=== PATIENT | male | born 1980 | race Hispanic/Latino ===

== ENCOUNTER 2021-03-30 09:28 | Inpatient (IN) | payer OTHER ==
[~2021-03-30] VITALS: Ht 182.9 cm; Wt 71.7 kg
--- NOTE | 2021-03-30 13:57 | NUR ---
ARRIVED TO CCU VIA STRETCHER AND WAS BROUGHT DOWN BY AN RN AND SECURITY. PT RESTLESS IN THE BED AND ALTERED BUT NOT RESPONDING TO QUESTIONS. PT AGITATED AT TIMES BUT REASSURABLE WITH TOUCH/TALK. PT HAS IV INSULIN INFUSING AT THIS TIME AT 8.8 UNITS/HR. VITALS TAKEN, PT ASSESSED. BLOOD SUGAR CHECKED AT 1300 AND WAS 562. PT INSULIN DRIP KEPT AT 8.8 UNITS/HR PER PROTOCOL. PRN ATIVAN 2MG ADMINISTERED AT THIS TIME AND ORDERED LR INFUSING AT THIS TIME. PT'S EX IN TO SEE PT INITIALLY. PT'S BROTHER NOW IN ROOM AT BEDSIDE, PT LAYING IN BED AND NO LONGER RESTLESS. WILL CONTINUE PLAN OF CARE. IVF INFUSING IV INSULIN TITRATING. PT'S BROTHER IN ROOM, SECURITY PRESENT.
--- NOTE | 2021-03-30 14:10 | NUR ---
PT LAYING IN BED AT THIS TIME STILL DROWSY/ALTERED. 100% SPO2 ON ROOM AIR. BLOOD GLUCOSE TAKEN AND WAS 358. PT INSULIN DRIP TITRATED DOWN TO 6 UNITS/HR PER PROTOCOL. PT NOT RESTLESS AND OCCASIONALY TURNING IN BED. PT BROTHER AT BEDSIDE, SECURITY OUTSIDE ROOM. IVF INFUSING, IV INSULIN TITRATING, WILL CONTINUE PLAN OF CARE.
--- NOTE | 2021-03-30 14:18 | NUR ---
ATTEMPTED TO MAKE CONTACT WITH PATIENT TO COMPLETE CASE MANAGEMENT ASSESSMENT. RAJAT MURCIA AND CHINMAY TAYLOR AT BEDSIDE ATTEMPTING TO CALM PATIENT. UNABLE TO COMPLETE ASSESSMENT DUE TO PATIENTS MEDICAL CONDITION AND BEHAVIOR AT THIS TIME, WILL FOLLOW UP WITH PATIENT TOMORROW.
--- NOTE | 2021-03-30 15:17 | NUR ---
THIS RN IN TO CHECK ON PT. PT LAYING IN BED RESTING/DROWSY, BROTHER AT BEDSIDE. INSULIN DRIP NOW AT 0.9 UNITS/HR AND PT ON D5 1/2NS ORDERED DUE TO A BLOOD SUGAR OF 143. MEDICATION WAS STARTED BY FOOD AND BEVERAGE MANAGER LUIS MIGUEL. PT IN NO APPARENT DISTRESS AT THIS TIME AND IS LAYING IN BED, WILL CONTINUE PLAN OF CARE.
--- NOTE | 2021-03-30 16:30 | NUR ---
THIS RN IN TO TAKE PT'S BLOOD SUGAR AND TITRATE INSULIN DRIP. PT LAYING IN BED SLEEPING/DROWSY AT THIS TIME. BLOOD SUGAR WAS 191. DR. QUEZADA CALLED AND UPDATED ON PT. ORDERS GIVEN TO CONTINUE INSULIN DRIP FOR ANOTHER HOUR AND THEN UPDATE HER. INSULIN DRIP TITRATED UP TO 2.8 UNITS/HR PER PROTOCOL. PT IN NO APPARENT DISTRESS AT THIS TIME, WILL CONTINUE PLAN OF CARE. BED IN LOWEST POSITION, BROTHER AT BEDSIDE, IV INSULIN TITRATING AT NEW RATE, D5 1/2 NS INFUSING, SECURITY OUTSIDE ROOM.
--- NOTE | 2021-03-30 17:20 | NUR ---
THIS RN IN TO CHECK PT'S BLOOD SUGAR. PT LAYING IN BED RESTING, BLOOD GLUCOSE ASSESSED AT THIS TIME AND WAS 219. DR. QUEZADA UPDATED ON PATIENT AND NEW BLOOD GLUCOSE. DR. QUEZADA STATED SHE WOULD BE PUTTING IN NEW ORDERS FOR THE PT AT THIS TIME. WILL AWAIT ORDERS AND CONTINUE PLAN OF CARE. PT LAYING IN BED RESTING, D5 1/2 NS AND IV INSULIN INFUSING AT PREVIOUS RATES, BED IN LOWEST POSITION, BROTHER AT BEDSIDE.
--- NOTE | 2021-03-30 17:50 | NUR ---
THIS RN IN TO CHECK ON PT. FATHER IN ROOM WITH PT. PT LAYING IN BED ON ROOM AIR RESTING. D5 1/2NS AND IV INSULIN DRIP STOPPED AT THIS TIME. IV SITES FLUSHED AND PT PLACED ON ORDERED IVR LR AT 125. PT NO LONGER RESTLESS AND FOLLOWING COMMANDS BUT STILL DROWSY AND KEEPING EYES CLOSED. PT ABLE TO ANSWER FULL NAME, TOWN, AND LOCATION WHEN ASKED BUT DROWSY WHILE ANSWERING AND RETURNED BACK TO SLEEP/REST SHORTLY AFTER. PT'S EX NOW IN ROOM AT BEDSIDE. PT RESTING IN BED IVF INFUSING, PT IN NO APPARENT DISTRESS. BED IN LOWEST POSITION, WILL CONTINUE PLAN OF CARE.
--- NOTE | 2021-03-30 18:40 | NUR ---
THIS RN IN TO CHECK ON PT. PT LAYING IN BED IN NO APPARENT DISTRESS AND RESTING. PT STILL DROWSY AT THIS TIME. IVF INFUSING ORDERED. SISTER AT BEDSIDE AT THIS TIME WITH PT. WILL CONTINUE PLAN OF CARE.
--- NOTE | 2021-03-30 19:40 | NUR ---
REPORT RECEIVED FROM RAJAT RN. IN TO CHECK ON PT. PTS DAUGHTER IS IN THE ROOM WITH PT. HE IS MOSTLY SLEEPY BUT IS AROUSABLE TO VOICE. WHEN ASKED IF HE NEEDS ANYTHING HE REQUESTS A BLANKET, WARM BLANKET GIVEN. IVF INFUSING. RESTING HR 100.
--- NOTE | 2021-03-30 21:45 | NUR ---
PT HAS BEEN GETTING MORE AND MORE RESTLESS, TURNING OVER AND OVER IN THE BED, WRAPPING IV LINE AND MONITOR AROUND HIM. HR INCREASING UP TO 120'S. 2MG IV ATIVAN GIVEN.
--- NOTE | 2021-03-30 22:30 | NUR ---
PT LESS RESTLESS AFTER GETTING ATIVAN.
--- NOTE | 2021-03-31 00:24 | NUR ---
IN TO DO VS AND ASSESSMENT. PT STILL VERY SLEEPY. HR 105-115. DENIES PAIN.
--- NOTE | 2021-03-31 02:00 | NUR ---
PT CONTINUES TO TOSS AND TURN IN BED, HAS TWISTED AND PULLED OUT ONE OF HIS IV'S VERY DIFFICULT TO KEEP MONITOR CORDS ON HIM.
--- NOTE | 2021-03-31 04:30 | NUR ---
IN TO ASSIST PT TO VOID, USED URINAL THEN BACK TO SLEEP.
--- NOTE | 2021-03-31 05:30 | NUR ---
PT PULLED OUT HIS SECOND IV WITH TWISTING HIMSELF IN BED. STATES HE HAS CHRNOIC BACK PAIN THAT MAKES HIM TURN FREQUENTLY IN BED. NEW IV STARTED WITH LAB DRAW.
--- NOTE | 2021-03-31 08:13 | NUR ---
PATIENT RESTING IN BED AND CONTINUES TO TOSS AND TURN SOME. PT USES CALL LIGHT AND STATES, "I;M HUNGRY." PT'S DAUGHTER REMAINS IN ROOM. PT HAS REMOVED HIS IV SITE AGAIN. CBG CHECKED AND FOUND TO BE 276 AND COVERED WITH SS INSULIN. PT THEN MOVING IN BED AND STATES, 'I NEED SOME FENTANYL."
--- NOTE | 2021-03-31 08:32 | NUR ---
PATIENT RESTING IN BED AT THIS TIME. DAUGHTER PRESENT IN ROOM. CALL LIGHT WITHIN REACH NO FUTHER NEEDS AT THIS TIME.
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
--- NOTE | 2021-03-31 11:12 | NUR ---
PATIENT CONTINUES TO HAVE EMESIS OFF THE SDIE OF THE BED AT THIS TIME. PT IS HALLUCINATING AND MORE DELIRIOUS THAN EARLIER. HR 110-120s, SP02 IS 100% ON ROOM AIR. PT REMAINS LAYING WITH HEAD AT END OF BED.
--- NOTE | 2021-03-31 11:29 | NUR ---
PATIENT GIVEN PRN BENADRYL. PT TOLERATED THIS WELL BUT IS NOT ORIENTED TO EVENT, NOTED TO BE HALLUCINATING SOME, AND CONTINUES TO BE RESTLESS. PT HAS NOW HAD 2 BOUTS OF EMESIS WITH >600 ML GREEN BILE LIKE EMESIS. NURSIGN PERSONNEL STAYING AT BEDSIDE FOR PATIENT SAFETY DUE TO INCREASED RISK FOR ASPIRATION WITH HIS RECENT VOMITING, HIS ALTERATION IN MENTAL STATUS AND HIS WITHDRAWAL SSYMPTOMS. PRN HALDOL AND ATIVAN AVAILABLE. 2 DOSES OF PRN ATIVAN GIVEN THUS FAR THIS AM. PT'S SISTER HAS SINCE LEFT ROOM AND STATES ANOTHER FAMILY MEMBER WILL BE RETURNING THIS AFTERNOON. PT VOIDS TO URINAL 400 ML. PT HELPED TO GET HIS UNDERWEAR ON PER HIS REQUEST. PT REMAINS OFF INSTALLATION HELPER DUE TO HIS CONSTANT TURNING OVER IN BED. IVF ALSO NOT CONNECTED WHILE HE IS SO MOBILE IN BED.
--- NOTE | 2021-03-31 11:41 | NUR ---
DIVINA RENAE REQUESTED I NOT VISIT PT AT THIS TIME. WILL FOLLOW NEEDED
--- NOTE | 2021-03-31 11:44 | NUR ---
PATIENT GIVEN IV HALDOL FOR AGITATION AND HALLUCINATIONS. PT PULLING HIS CORDS APART, RIPPING THE EMESIS BAGS APART, ATTEMPTING TO BRING THINGS UP TO HIS MOUTH TO SIMULATE SMOKING THEM. PT NOT COHERENT, BUT STILL SOMEWHAT COMPLIANT. NURSING PERSONNEL STAYING AT BEDSIDE CLOSE TO PATIENT.
--- NOTE | 2021-03-31 12:05 | NUR ---
THIS ENGINEER GAS PUMPING STATION 1:1 WITH THIS PATIENT UNTIL FURTHER NOTICE. MODIFIED REPORT GIVEN
--- NOTE | 2021-03-31 12:35 | NUR ---
VERY RESTLESS, DIFFICULT TO DIRECT. ATIVAN 2 MG IV GIVEN.
--- NOTE | 2021-03-31 12:36 | NUR ---
CALLED [facility] FOR DR. QUEZADA TO SEE IF PATIENT WAS ON A WAITLIST FOR DETOX. THEY HAD NO INFORMATION ON HIM. I TALKED TO LA AND HE EMAILED ME THE INFORMATION FOR JR TO HAVE AFTER HE GOES THROUGH DETOX. THERE ARE TWO PROGRAMS THAT ARE AVAILABLE. [facility] AND [facility], HE RECOMMENDED [facility] BECAUSE ITS FASTER TO GET INTO. HE SENT ME AN EMAIL WITH THE APPLICATION TO THEIR PROGRAM. I WILL BRING IT TO THE PATIENT.
--- NOTE | 2021-03-31 12:40 | NUR ---
MONA GALLAGHER HERE TO SIT ONE-ON-ONE WITH PATIENT PATIENT REMAINS VERY IMPULSIVE.
--- NOTE | 2021-03-31 12:41 | NUR ---
VERY IMPULSIVE. ATTEMPTING TO GET OOB.
--- NOTE | 2021-03-31 15:34 | NUR ---
BENADRYL 50 MG IV GIVEN PATIENT AGITATED.
--- NOTE | 2021-03-31 17:54 | NUR ---
PATIENT IS CALM AT THIS TIME. EXWIFE IN ROOM. IVF INFUSING AT 75 ML/HR.
--- NOTE | 2021-03-31 18:28 | NUR ---
PATIENT HAS RECIEVED A TOTAL OF ATIVAN 10 MG IV TODAY. HALDOL 2 MG TOTAL.
--- NOTE | 2021-03-31 19:00 | NUR ---
REMAINS CALM. SITTER IN ROOM. REPORT TO NEXT SHIFT.
--- NOTE | 2021-03-31 19:39 | NUR ---
RECEIVED REPORT FROM [facility]. pt RESTING ON LEFT SIDE, EYES CLOSED, RESPIRATIONS REGULAR AND UNLABORED. JODY 1:1 OBSERVATION WITH pt. WHITEBOARD UPDATED.
--- NOTE | 2021-03-31 21:45 | NUR ---
IN TO GIVE MEDICATIONS (SEE MAR). pt WOKE TO ANSWER QUESTIONS THEN CONTINUED SNORING. WAS ABLE TO TAKE ORAL MEDICATION. pt NODDED YES WHEN ASKED IF HE WANTS VISITORS. FATHER AT BEDSIDE. SECURITY JODY 1:1 OBS.
--- NOTE | 2021-03-31 22:27 | NUR ---
IN TO DO ASSESSMENT. pt RESTING IN BED WITH EYES CLOSED, RESPIRATIONS REGULAR AND UNLABORED. pt DID NOT RESPOND TO QUESTIONS. LIMITED ASSESSMENT DONE AT THIS TIME. LUNGS CLEAR. HR 100. IV PATENT. BROTHER AT BEDSIDE. KAREN 1:1 OBS.
--- NOTE | 2021-04-01 | NUR ---
pt RESTING IN BED WITH EYES CLOSED, RESPIRATIONS REGULAR, SNORING AT TIMES. SECURITY 1:1 WITH pt. pt's BROTHER SLEEPING ON COUCH.
--- NOTE | 2021-04-01 02:39 | NUR ---
IN TO DO BLOOD SUGAR AND ASSESSMENT. pt SNORING. DID NOT FLINCH WHEN BLOOD DRAWN FOR CBG OR WHEN INSULIN INJECTION GIVEN (SEE MAR). DID NOT WAKE FOR ASSESSMENT.
--- NOTE | 2021-04-01 04:30 | NUR ---
pt RESTING IN BED WITH EYES CLOSED, WOKE TO REPEATED VOICE. pt OPENED EYES AND STATED "NO" WHEN ASKED IF HE COULD PEE. DID, WITH MUCH COACHING, GET TO THE SIDE OF THE BED AN ATTEMPT. NO URINE. BLADDER SCAN DONE. pt SNORED THROUGH BLADDER SCAN. SECURITY 1:1 WITH pt.
--- NOTE | 2021-04-01 04:48 | NUR ---
UPDATED MD THAT pt HAS NOT VOIDED AND BLADDER SCAN INDICATED >290. ORDERED TO STRAIGHT CATH AND INCREASE FLUIDS TO 100ML/HR.
--- NOTE | 2021-04-01 05:09 | NUR ---
STRAIGHT CATH PER ORDERS. pt TOLERATED WELL. 250MLS OUT OF CONCENTRATED URINE WITH A STRONG ODOR. pt OPENED EYES OCCASSIONALLY. RESTING IN BED WITH EYES CLOSED, RESPIRATIONS REGULAR AND UNLABORED. SECURITY 1:1.
--- NOTE | 2021-04-01 07:06 | NUR ---
pt LAYING IN BED. EYES CLOSED, RESPIRATIONS REGULAR AND UNLABORED. SECURITY 1:1 OBS
--- NOTE | 2021-04-01 07:30 | NUR ---
REPORT RECIEVED. PATIENT IS RESTFUL IN BED AT THIS TIME. BROTHER IS IN ROOM.
--- NOTE | 2021-04-01 08:30 | NUR ---
ACCUCHECK 281, 7 UNITS REG INSULIN GIVEN FOLLOWED BY ROUTINE LANTUS INSULIN 10 UNITS SQ GIVEN.
--- NOTE | 2021-04-01 09:34 | NUR ---
DR. QUEZADA HERE TO SEE PATIENT. IVF INFUSING AT 100 ML/HR. PATIENT IS RESPONSIVE TO VERBAL STIMULI.
--- NOTE | 2021-04-01 12:00 | NUR ---
MAYA STAFF HERE TO TALK WITH PATIENT. PATIENT IS MORE ALERT, IS SAYING FEW WORDS. TAKING SIPS OF WATER, DENIES NAUSEA. REQUESTING FOOD. WILL FEED PATIENT WHEN HE IS MORE AWAKE. PATIENT HAS BEEN CALM TODAY. DENIES NEED TO VOID.
--- NOTE | 2021-04-01 13:30 | NUR ---
MORE AWAKE, ASKING FOR FOOD. TAKING CLEAR LIQUIDS WELL. DENIES NAUSEA.
--- NOTE | 2021-04-01 13:35 | NUR ---
DR. QUEZADA AWARE OF PATIENT REQUEST FOR FOOD. DIET TOLERATED ORDERED.
--- NOTE | 2021-04-01 14:00 | NUR ---
SAT UP IN BED TO EAT GRILLED CHEESE AND TOMATOE SOUP. TOLERATED WELL. IS COOPERATIVE. DENIES NEED TO VOID.
--- NOTE | 2021-04-01 15:30 | NUR ---
EATING, NO SWALLOWING PROBLEMS NOTED.
--- NOTE | 2021-04-01 17:00 | NUR ---
DR. QUEZADA HERE TO SEE PATIENT. ORDERS RECIEVED.
--- NOTE | 2021-04-01 19:30 | NUR ---
CALM. KIDS IN ROOM, REPORT TO NEXT SHIFT.
--- NOTE | 2021-04-01 19:57 | NUR ---
RECEIVED REPORT FROM [facility]. pt RESTING IN BED WITH DAUGHTER AT BEDSIDE. CALL LIGHT WITHIN REACH.
--- NOTE | 2021-04-01 20:02 | NUR ---
ROUNDED ON pt. RESTING IN BED TALKING TO DAUGHTER. PROVIDED FRESH WATER. pt STATED "I FEEL GREAT, I HAVEN'T FELT SOBER IN MONTHS, IT'S JUST BEEN AND DOWNWARD SPIRAL. I'VE BEEN HIGH OR WITHDRAWING." NO FURTHER REQUESTS AT THIS TIME. DAUGHTER REMAINS AT BEDSIDE. CALL LIGHT WITHIN REACH.
--- NOTE | 2021-04-01 21:19 | NUR ---
IN TO DO ASSESSMENT. pt DENIES PAIN AND NAUSEA. REPORTS "I FEEL GREAT" DROWSY BUT RESPONDS APPROPRIATELY. ASSESSMENT DONE. pt DENIES NEED TO URINATE. DAUGHTER AT BEDSIDE, WILL STAY THE NIGHT. pt RESTING IN BED WITH EYES CLOSED, RESPIRATIONS REGULAR AND UNLABORED. CALL LIGHT WITHIN REACH.
--- NOTE | 2021-04-01 21:52 | NUR ---
PT CALLED TO USE BATHROOM, UP WITH SBA FOR CORD MANAGEMENT, VOIDED 600ML AND RETURNED TO BED. CALL LIGHT WITHIN REACH.
--- NOTE | 2021-04-01 23:05 | NUR ---
ROUNDED ON pt. RESTING IN BED ON LEFT SIDE. RESPIRATIONS REGULAR AND UNLABORED. DAUGHTER AT BEDSIDE. CALL LIGHT WITHIN REACH.
--- NOTE | 2021-04-02 01:27 | NUR ---
IN TO DO ASSESSMENT. pt WOKE TO VOICE, DENIED PAIN, NAUSEA, OR NEED TO VOID. NO CHANGES IN ASSESSMENT. CALL LIGHT WITHIN REACH. CURTAIN OPEN TO NURSES STATION.
--- NOTE | 2021-04-02 03:40 | NUR ---
ROUNDED ON pt. RESTING IN BED, RESPIRATIONS REGULAR AND UNLABORED. CALL LIGHT WITHIN REACH. DAUGHTER AT BEDSIDE.
--- NOTE | 2021-04-02 05:13 | NUR ---
CALL LIGHT ON. pt UP TO VOID SBA. STEADY ON FEET. BACK TO BED. NO CHANGES IN ASSESSMENT. CALL LIGHT WITHIN REACH. LAB INTO DRAW.
--- NOTE | 2021-04-02 05:26 | NUR ---
PROVIDED FOOD PER pt REQUEST.
--- NOTE | 2021-04-02 08:00 | NUR ---
PT IS ALERT AND AWAKE. PT ABLE TO ORDER HIS BREAKFAST. PT LAYING IN BED AT THIS TIME. DAUGHTER IN ROOM. PT DENIES PAIN OR NAUSEA. PT IS ABLE TO AMBULATE TO THE RESTROOM WITH SBA FOR CHORDS. WALKS WITH STEADY GAIT. PT BACK IN BED WITH HOB RAISED TO 45 DEG. ANGLE. CALL LIGHT WITHIN REACH.
--- NOTE | 2021-04-02 08:00 | NUR ---
Spoke with Jayson. He plans on going to [facility] for rehab. Plans on going home for a day to get things in order and will discharge when he has been accepted.
--- NOTE | 2021-04-02 09:30 | NUR ---
PT ABLE TO EAT ALL OF HIS BREAKFAST. BROTHER IN ROOM WITH HIM. PT ABLE TO AMBULATE TO THE RESTROOM WITH SBA WITH CHORDS. PT BACK IN BED. CALL LIGHT WITHIN REACH. PT CALM AND ALERT.
--- NOTE | 2021-04-02 11:27 | NUR ---
Called and spokew with Alba from [facility] as she has been working on placement to [facility]. She states pt has not been accepted to rehab, but she has been speaking with Gutierrez. from [facility]. Alba was here to complete paperwork, but it had been mistakenly returned to her office. She has appointments this am, but will return later and complete paperwork and fax to Gutierrez. She will let us know as soon as possible if he is accepted.
--- NOTE | 2021-04-02 12:17 | NUR ---
PT IS FEELING FATIGUED AND DROWSY BUT EASILY AROUSED. PT LAYING IN BED. COOPERATIVE WHEN PERFORMING ASSESSMENT ON HIM. PT DENIES PAIN OR NAUSEA. PT ABLE TO REMOVE HIS BLANKET AND SOCKS TO INCREASE COMFORT. SPOKE TO PT ABOUT PLAN OF CARE. ALL QUESTIONS ANSWERED. WATER AT BEDSIDE TABLE, CALL LIGHT WITHIN REACH. NO ADDITIONAL NEEDS AT THIS TIME.
--- NOTE | 2021-04-02 13:00 | NUR ---
IN TO ADMINISTER PRESCRIBED MEDICATION. PT REQUESTS TO GO OUTSIDE TO SMOKE A CIGARETTE. PT TAUGHT ABOUT POTENTIAL RISKS AND NICOTINE GUM OR PATCH OFFERED. PT REQUESTED GUM. MD NOTIFIED AND NEW ORDER PLACED.
--- NOTE | 2021-04-02 14:00 | NUR ---
PT LAYING IN BED. BROTHER ON THE COUCH NEXT TO HIM, PT REPORTS IMPROVEMENT FOR NICOTINE WITHDRAWL SYMPTOMS AFTER CHEWING THE GUM. PATIENT IS RESTING, SEEMS MORE AWAKE. NO ADDITONAL NEEDS AT THIS TIME.
--- NOTE | 2021-04-02 14:30 | NUR ---
IN TO REFIL PATIENTS WATER. PATIENT REPORTS A DECREASE IN NICOTINE WITHDRAWAL AFTER GUM ADMINISTRATION. WATER AT BEDSIDE. PT LAYING IN BED AT THIS TIME.
--- NOTE | 2021-04-02 15:45 | NUR ---
Received call from Alba at [facility]. Update she has spoken with Gutierrez at [facility]. Possibility of a bed open at 12 n tomorrow. Pt must be able to care for self and give his own insulin. They do not have staff to provide medical care. Alba states, per Jayson's family he may not want to go to rehab now. She was able to speak with [facility] and he is in their care, she has requested William from [facility] evaluate Jayson for underlying issues and possible hold or placement for other needs. William will evaluate pt. later this afternoon.
--- NOTE | 2021-04-02 16:19 | NUR ---
IN PT ROOM TO PERFORM ASSESSMENT. PT SLEEPING, EASILY AROUSED. PT CALM AND COOPERATIVE. PT ABLE TO CHECK HIS OWN INSULIN AND WALK ME THROUGH THE STEPS TO TAKE TO OBTAIN READING. PT ABLE TO ORDER HIS OWN DINNER. MAYA EMPLOYEES AND BROTHER IN THE ROOM WITH HIM.
--- NOTE | 2021-04-02 18:35 | NUR ---
IN TO GIVE PT INSULIN, WITH SBA PT WAS ABLE TO ADMINISTER THE MEDICATION ON HIS OWN FOLLOWING SAFETY GUIDELINES. PT REQUESTED NICOTINE GUM, GUM PRN GIVEN. PT HAS TOLERATED FOOD AND LIQUIDS. BROTHER, FERNANDEZ IN ROOM. WATER AT BEDSIDE. CALL LIGHT WITHIN REACH.
--- NOTE | 2021-04-02 19:15 | NUR ---
SHIFT REPORT RECEIVED. PATIENT RESTING IN RECLINER. FAMILY IN ROOM.
--- NOTE | 2021-04-02 21:00 | NUR ---
PATIENT READY FOR BED. HAS BEEN VISITING WITH A FRIEND. PATIENT IS CALM. ASKING APPROPRIATE QUESTIONS ABOUT HIS MEDICATIONS, TREATMENT PLAN WITH BUPRENORPHINE AND INSULIN. PATIENT APPEARS TO BE RETAINING A MODERATE AMOUNT OF PREVIOUS KNOWLEGDE. REENFORCED LEARNING. PATIENT PROVIDED HIS OWN FINGER STICK FOR GLUCOSE CHECK AND ADMINISTERED HIS INSULIN SHOT. IV FLUIDS PER ORDER, SITE WNL. PATIENT DENIED PAIN OR NAUSEA. SKIN IS SENSITIVE. PATIENT OFFERED LOTION BUT DENIES. VS STABLE.
--- NOTE | 2021-04-03 01:00 | NUR ---
PATIENT LEFT AMA. PATIENT HAD BEEN ANXIOUSLY WAITING FOR DAUGHTER TO RETURN. UPON DAUGHTER'S ARRIVAL THE PATIENT AND HER ARGUED ABOUT UNKNOWN ISSUES. THE PATIENT THEN DRESSED AND PULLED HIS IV OUT. ENCOURAGED PATIENT TO CALM AND CONTINUE WITH TREATMENT PLAN. PATIENT REFUSED TO TALK TO STAFF. REFUSED TO HAVE IV SITE WRAPPED. LEFT HIS BELONGINGS AND REFUSED TO SIGN AMA PAPER WORK. ROBOTICS TECHNICIAN, SECURITY AND NOTIFIED.
== END 2021-04-03 01:00 | disposition left against medical advice (07) | DRG 894 ==
LOC: ED 09:28 → CCU 12:21
PROVIDERS: ADMIT Internal Medicine; ATTEND Internal Medicine
DX: F19.139 Other psychoactive substance abuse with withdrawal, unspecified (principal); Z20.822 Contact with and (suspected) exposure to COVID-19; E10.65 Type 1 diabetes mellitus with hyperglycemia; E87.5 Hyperkalemia; F17.200 Nicotine dependence, unspecified, uncomplicated; F43.21 Adjustment disorder with depressed mood; Z53.29 Procedure and treatment not carried out because of patient's decision for other reasons; Z79.4 Long term (current) use of insulin; Z91.14 Patient's other noncompliance with medication regimen
CPT/HCPCS: 36415; 80048; 80053; 81001; 82010; 82803; 82947; 83735; 85025; 96374; 96375; 96376; 99285-25; C9803; J1200; J1630; J1815; J2060; J2405; J3480; J7030; J7042; J7060; J7120; J7121; U0003

== ENCOUNTER 2021-05-05 19:17 | Observation (INO) | payer OTHER ==
[~2021-05-05] VITALS: Ht 182.9 cm; Wt 81.8 kg
--- OUTSIDE RECORDS SUMMARY | 2021-05-05 19:20 | XMS ---
PreManage Notification: JR [facility] [employer] [facility] Analyst Events No recent Security Events currently on file CRITERIA MET - 6 ED Visits in 6 Months - PDMP - [facility] - 2 Visits in 30 Days - [facility] - 3 Facilities in 90 Days CARE PROVIDERS There are no care providers on record at this time. Jodee has no Care Guidelines for this patient. EJon VISIT COUNT (12 MO.) 1 [facility] [address] 2 [facility]. TOTAL 7 NOTE: Visits indicate total known visits. ED/UCC VISIT TRACKING (12 MO.) 05/05/2021 19:18 [facility] [place] TYPE: Emergency COMPLAINT: - WITHDRAWL 04/23/2021 14:34 [facility] [place] TYPE: Emergency DIAGNOSES: - Hyperglycemia, unspecified - Procedure and treatment not carried out because of patient's decision for other reasons - HIGH BLOOD SUGARS [facility]08[facility]2021 13:[facility] DIAGNOSES: - Other specified problems related to psychosocial circumstances - Weakness - Other chronic pain - Hyperglycemia, unspecified - Low back pain 04/08/2021 13:07 [facility] TYPE: Emergency DIAGNOSES: 51398. high sugar 03/30/2021 09:28 [facility] [place] TYPE: Emergency COMPLAINT: - WITHDRAWL 03/28/2021 20:29 [facility] [place] TYPE: Emergency DIAGNOSES: - DEPRESSION - Hyperglycemia, unspecified 09/07/2020 15:37 [facility] [place] TYPE: Emergency DIAGNOSES: - Type 1 diabetes mellitus with hyperglycemia - Opioid dependence, uncomplicated - OD - Other stimulant abuse, uncomplicated INPATIENT VISIT TRACKING (12 MO.) 03/30/2021 12:21 [facility] [place] TYPE: Critical Care COMPLAINT: - ACUTE DRUG WITHDRAWAL, DIAGNOSES: - Procedure and treatment not carried out because of patient's decision for other reasons - Hyperkalemia - Nicotine dependence, unspecified, uncomplicated - Adjustment disorder with depressed mood - Other psychoactive substance abuse with withdrawal, unspecified - Other stimulant dependence with withdrawal - superintendent container terminal (current) use of insulin - Patient's other noncompliance with medication regimen - Type 1 diabetes mellitus with hyperglycemia [email or web address]
--- NOTE | 2021-05-06 00:41 | NUR ---
pt ARRIVED TO THE FLOOR AT 0018 WITH TWO SECURITY GUARDS AND STEAM BOILER FIREMAN. RESTLESS IN BED CONSTANTLY MOVING. DOES NOT FOLLOW INSTRUCTIONS. RESPIRATIONS REGULAR AND UNLABORED, LUNG SOUNDS CLEAR. SKIN GROSSLY INTACT. EYES RED, pt PULLED AWAY WHEN TOUCHED. UNABLE TO TEST AIRFREIGHT LOADING SUPERVISOR, HOWEVER pt PULLS AWAY WITH NORMAL STRENGTH. FAMILY ACCOMPANIED pt TO FLOOR, FATHER ELEANOR WILL BE STAYING WITH pt. SECURITY REMAINS 1:1.
--- NOTE | 2021-05-06 01:10 | NUR ---
pt CONTINUES TO BE AGITATED AND PULLING ON CORDS, IV MEDICATION GIVEN (SEE MAR). SECURITY WAS REQUIRED TO HOLD ARM WHILE ADMINISTERING. pt NOW RESTING IN BED ON BACK. SNORING AT TIMES. MOVING LEGS AND ARMS. SECURITY 1:1.
--- NOTE | 2021-05-06 03:10 | NUR ---
pt AGITATED, PRN GIVEN (SEE MAR). AFTER 10 MINUTES pt REMAINED AGITATED, ANOTHER DOSE WAS GIVEN. pt REQUIRED PHYSICAL RESTRAINT BY SECURITY AND FATHER DURING ADMINISTRATION THEN pt BEGAN TO VOID. LARGE QUANTITY YELLOW URINE. pt SETTLED AFTER VOID. SECOND IV STARTED. WITH THREE PERSON ASSIST. BLOOD SUGAR DONE, INSULIN ADMINISTERED. SECURITY REMAINS 1:1 WITH pt. FATHER AT BEDSIDE.
--- NOTE | 2021-05-06 04:10 | NUR ---
IN TO DO ASSESSMENT. pt CONTINUES TO BE RESTLESS AT TIMES. pt DID NOT GET AGITATED WITH CARES. NO MEDICATIONS GIVEN AT THIS TIME. IV INFUSING PER ORDERS. NO CHANGES IN ASSESSMENT. SECURITY 1:1
--- NOTE | 2021-05-06 04:43 | NUR ---
IV PUMP BEEPING. NEW BAG OF FLUIDS HUNG.
--- NOTE | 2021-05-06 05:30 | NUR ---
AWAKENS EASILY, HAS SLEPT WELL. DENIES NEED TO VOID. REMAINS IN SR 60' WHEN ASKEEP.
--- NOTE | 2021-05-06 05:40 | NUR ---
IN TO DRAW LABS. pt AGITATED, MOVING IN BED. UNCOOPERATIVE WITH CARES. PRN GIVEN. SECURITY ASSISTED TO HOLD pt DURING LAB DRAW. pt CONTINUES TO BE RESTLESS WITH PERIODS OF SNORING, LESS AGITATED. SECURITY REMAINS 1:1
--- NOTE | 2021-05-06 06:47 | NUR ---
SECURITY NOTIFIED THIS RN THAT pt NEEDED TO VOID. pt HAS EYES OPEN AND IS PULLING ON HIS PENIS. SOME INCONTINENCE BUT MOST OF THE VOID WAS IN THE URINAL. SKIN CARE DONE. pt IMMEDIATELY RELAXED AND STARTED SNORING AFTER VOID AND WARM BLANKETS. SECURITY REMAINS 1:1.
--- NOTE | 2021-05-06 07:38 | NUR ---
IN PATIENT'S ROOM TO CHECK ON PATIENT THIS AM. REPORT REC'D FROM TANGIBLE PERSONAL PROPERTY APPRAISER. PATIENT IS DROWSY, BUT SOMEWHAT RESTLESS IN BED. SIDE RAILS HAVE SEIZURE PADS ON THEM. PT'S FATHER IS IN ROOM AND MOSTLY DUTCH SPEAKING. PT'S FATHER EXPRESSES HIS APPRECIATION TOWARDS STAFF FOR HELPING HIS SON AND HIS FAMILY. HIS FATHER DISCUSSES THEIR DESIRE TO TAKE PATIENT TO [place] TO A REHAB FACILITY, HE STATES THAT WHEN HE TOOK PATIENT TO REHAB IN [place], PATIENT JUST LEFT THE FACILITY. PATIENT NOW RESTING ON LEFT SIDE, HR IN THE 100s.
--- NOTE | 2021-05-06 10:19 | NUR ---
INTO UNIT, PATIENT SLEEPING. UPDATE RECVD FROM LORENZO MURCIA. LORENZO MURCIA STATES THAT PATIENT HAS NOT BEEN ANSWERING QUESTIONS AT THIS POINT IN HIS ADMISSION. LORENZO MURCIA STATES THAT PATIENT FATHER HAS BEEN AT THE BEDSIDE, BUT HAS STEPPED AWAY AT THE MOMENT. WILL RETURN TO FOLLOW UP WITH PATIENT AT A LATER TIME.
--- NOTE | 2021-05-06 10:27 | NUR ---
PATIENT CONTINUES TO SLEEP/REST AT THIS TIME. PT IS LAYING ON HIS RIGHT SIDE AND COVERED WITH BLANKETS. SECURITY REMAINS IN ROOM AND ATTENTIVE TO PATIENT. HR IN THE 80s. LAST BP 128/96. IVF CONTINUE AT 200 ML/HR. PT'S FATHER HAS LEFT BUT STATED THAT HE WAS PLANNING ON COMING RIGHT BACK. CONTINUE TO MONITOR.
--- NOTE | 2021-05-06 11:07 | NUR ---
INTO UNIT TO DISCUSS INITIATION OF [facility] REFERRAL WITH LORENZO MURCIA. LORENZO MURCIA STATES THAT [facility] HAS ALREADY CONTACTED THE UNIT REGADING THE PATIENT. STAFF HAS INFORMED [facility] THAT IT IS NOT APPROPRIATE TO SPEAK WITH THE PATIENT AT THIS TIME HE IS DROWSY AND UNABLE TO ANSWER QUESTIONS. PER LORENZO TREJO STAFF STATING THEY WILL PLAN TO FOLLOW UP WITH PATIENT WHEN HE IS ABLE.
--- NOTE | 2021-05-06 11:07 | NUR ---
professional security officer notified application security engineer that pt needed to use the urinal. application security engineer assisted pt with the urinal. no issues during that process.. no other issues at this time
--- NOTE | 2021-05-06 12:02 | NUR ---
Attempt to urinate, unable. Turns to side and closes eyes to rest. Father at bedside. Security in room as well. Allowed to rest at this time. Instructed to inform staff if he would like to attempt to urinate again later.
--- NOTE | 2021-05-06 12:13 | NUR ---
Restless in bed, per security. Upon entering room, lying on stomach, tangled in cardiac lead cords. Untangled, V-lead replaced. Father remains in room, along with security. Allowed to rest.
--- NOTE | 2021-05-06 12:18 | NUR ---
security infrastructure engineer left and now ladle filler is sitting in room with pt. pt father is in the room with pt. pt is currently laying in bed sleeping
--- NOTE | 2021-05-06 13:10 | NUR ---
pt. used urinal. statement clerks manager got warm blakets for pt.
--- NOTE | 2021-05-06 13:19 | NUR ---
was in to see pt.
--- NOTE | 2021-05-06 13:25 | NUR ---
DR. ROGERS IN TO SEE PATIENT. PATIENT STILL VERY DROWSY, BUT WILL AWAKEN WHEN HE NEEDS TO VOID. PT VOIDS TO URINAL AND THEN GOES BACK TO SLEEP. PT WILL ANSWER TO HIS NAME, BUT IS NOT VERY INTERACTIVE OR VERBAL. PT'S FATHER REMAINS IN ROOM WITH PATIENT. PATIENT IS NOTED TO SAY, "I'M HUNGRY," HOWEVER PATIENT IS NOT AWAKE ENOUGH TO SAFELY EAT ANYTHING. ONCE PATIENT AWAKENS MORE, HE CAN EAT. IVF DECREASED TO 100 ML/HR. PT REMAINS IN SINUS RHYTHM 80-90s WHILE RESTING. SITTER REMAINS IN ROOM FOR PATIENT SAFETY.
--- NOTE | 2021-05-06 13:28 | NUR ---
pt. is restless and moving around more now
--- NOTE | 2021-05-06 14:02 | NUR ---
DIVINA RENAE RERQUESTED I NOT VISIT PT AT THIS TIME. SECURITY IS IN WITH PT 1 ON 1 WILL CONTINUE TO FOLLOW
--- NOTE | 2021-05-06 14:31 | NUR ---
RN was in the room to check pt bs. no other needs at this time
--- NOTE | 2021-05-06 15:06 | NUR ---
pt let manager material know he needed to use the urinal. no other needs at this time
--- NOTE | 2021-05-06 15:27 | NUR ---
PATIENT MOVED FROM 130 TO 129 FOR BETTER VISUALIZATION OF PATIENT. PATIENT'S FATHER NOT IN ROOM AT THIS TIME.
--- NOTE | 2021-05-06 15:45 | NUR ---
MED REC COMPLETE
--- NOTE | 2021-05-06 16:09 | NUR ---
PATIENT'S FATHER HAS RETURNED AT THIS TIME AND IS NOW IN ROOM. PT SLEEPING CALMLY. CONTINUE CARROLL ONITOR.
--- NOTE | 2021-05-06 17:10 | NUR ---
PATIENT REMAINS RESTING IN BED AT THIS TIME. PT'S FATHER IN ROOM. PT HAS CONTINUED TO BE CALM, COOPERATIVE, BUT NOT VERY INTERACTIVE. PT HAS ASKED ABOUT EATING A COUPLE OF TIMES, BUT HAS NOT BEEN SUSTAINED AWAKE ENOUGH TO FEEL SAFE GIVING PATIENT ANYTHING TO EAT. WILL CONTINUE TO MONITOR. IVF CONTINUE AT 100 ML/HR.
--- NOTE | 2021-05-06 18:11 | NUR ---
Father to nurse's station to request drink of water for patient. Patient does not open eyes when this nurse talks to patient. Informed he can eat when he wakes, but no liquids until he is awake. Offer to swab mouth with moist swab. Shakes head no when offered, does not open eyes.
--- NOTE | 2021-05-06 18:15 | NUR ---
PATIENT CONTINUES TO REST AT THIS TIME. IVF CONTINUE AT 100 ML/HR. PT'S FATHER IN ROOM.
--- NOTE | 2021-05-06 20:07 | NUR ---
SHIFT REPORT RECEIVED FROM DAYSHIFT RN. ASSESSMENT COMPLETED, PT REMAINS DROWSY AND SPEECH IS DIFFICULT TO UNDERSTAND, HE IS CALM/COOPERATIVE. SKIN FEELS HOT, PT IS AFEBRILE. LUNGS CLEAR, RA. HR REGULAR, RATE 90-100. BOWEL TONES ACTIVE. IV INTACT, IVF INFUSING WNL. SKIN APPEARS GROSSLY INTACT. MESH UNDERWEAR PROVIDED PER PT REQUEST, ASSISTED HIM TO PUT THEM ON. PT'S FATHER AT BEDSIDE, NURSE CHEMICAL DEPENDENCY MONITORING PT FROM NURSES' STATION. CB, 1 UNIT SLIDING SCALE ADMINISTERED. SEIZURE PADS ON BED FOR SAFETY.
--- NOTE | 2021-05-06 20:34 | NUR ---
PT FATHER ASSIST PT WITH BLANKETS, THIS PHYSICIAN GENERAL INTERNAL MEDICINE CHECKING IN, NO NEEDS AT THIS TIME
--- NOTE | 2021-05-06 21:18 | NUR ---
IN TO CHECK ON CARDIAC LEADS, IV PUMP THEN ALARMING, RN NOTIFIED, PT ASKING ABOUT WHEN LUNCH IS, INFORMED PT OF TIME, THIS TRAINING OFFICER'S UNDERSTANDING PT IS FEELING HUNGERY, WILL FOLLOW UP WITH RN
--- NOTE | 2021-05-06 21:37 | NUR ---
OK TO D/C SHEET ROCK NAILER PER DR. ROGERS.
--- NOTE | 2021-05-06 22:08 | NUR ---
PT CONTINUES TO REST IN BED, STATES THAT HE IS DOING OK. IVF CONTINUES TO INFUSE AT 100ML/HR. PT'S FATHER REMAINS IN ROOM, COUCH MADE INTO BED FOR HIM. PT REMAINS WITHIN VIEW FROM NURSES' STATION.
--- NOTE | 2021-05-06 22:38 | NUR ---
IN TO ASSIST PT WITH VOIDING, PTs FATHER ASSISTED WITH URINAL, 500MLs VOIDED, PT ASKING ABOUT WITH TIME LUNCH IS, REDIRECTED PT ON TIME, WILL TRY TO GET A SANDWICH BOX FOR PT
--- NOTE | 2021-05-07 00:20 | NUR ---
ASSESSMENT COMPELTED. PT REMAINS DROWSY, BUT IS ABLE TO FOLLOW SIMPLE COMMANDS. VITAL SIGNS STABLE. PT FREQUENTLY REPOSITIONING HIMSELF IN THE BED. IV RE-SECURED, REMAINS PATENT. PT'S FATHER SLEEPING ON COUCH.
--- NOTE | 2021-05-07 02:23 | NUR ---
IN TO HANG NEW BAG OF IVF, PT SLEEPING, WAKES BRIEFLY WHILE IN ROOM, DENIES NEEDS.
--- NOTE | 2021-05-07 02:49 | NUR ---
PT REACHING FOR BASKET ABOVE HIS BED, GRABBED [employer] PACKAGE SAYING HE WAS "TRYING TO GET A PIECE OF CANDY." REMINDED PT THAT I CAN GET HIM SOMETHING TO EAT WHEN HE IS ABLE TO WAKE UP AND STAY AWAKE. PT REQUESTING SOMETHING FOR 8/10 BACK PAIN, STATES THAT HE HAS A PREVIOUS BACK INJURY AND THAT IS HOW HE BECAME "HOOKED ON FENTANYL." N.I.O. ENTERED FOR PRN TYLENOL, GIVEN AT THIS TIME. PT SWALLOWED PILL WITH WATER WITHOUT ANY ISSUE. DENIES FURTHER NEEDS AT THIS TIME.
--- NOTE | 2021-05-07 04:20 | NUR ---
ASSESSMENT COMPLETED, PT REMAINS DROWSY BUT WAKES UP AND ANSWERS QUESTIONS APPROPRIATELY. REPORTS THAT TYLENOL HAS HELPED HIS BACK PAIN. IV DRESSING CHANGED, IV SITE REMAINS PATENT, FLUIDS INFUSING WNL.
--- NOTE | 2021-05-07 06:21 | NUR ---
PT CONTINUES TO REST, DENIES NEEDS AT THIS TIME. IVF INFUSING WNL.
--- NOTE | 2021-05-07 10:32 | NUR ---
INTO PATIRNT ROOM. PATIENT SLEEPING ON R SIDE. ZAK MURCIA ASKING THAT PATIENT NOT BE DISTURBED AT THIS TIME. ZAK MURCIA STATES [facility]A TO COME IN TO SEE PATIENT AT 1300 TODAY. WILL FOLLOW UP WITH ZAK MURCIA AND [facility] FOR UPDATE.
--- NOTE | 2021-05-07 12:20 | NUR ---
PT COOPERATIVE AND POLITE WITH STAFF ALL SHIFT. PT ABLE TO EAT 100% OF HIS BREAKFAST AND DRINKS FLUIDS WELL. ALL VITALS REMAIN WNL. PT'S FATHER, ELEANOR, HAS BEEN AT THE BEDSIDE OFF AND ON MOST OF THE MORNING. PT UNDERSTANDS HIS DIAGNOSIS AND REASON FOR ADMISSION. PT RECIEVES ALL DC INSTRUCTIONS WRITTEN, AND VERBAL, AND COMMUNICATES UNDERSTANDING. ALL QUESITONS ANSWERED. IV SITE DC'D BY PT ACCIDENTALLY, TIP OF THE CATH IS INTACT. PT LEAVES THE UNIT VIA WHEELCHAIR WITH HIS FATHER AND ELLIOTT AN TO ASSIST OUT.
== END 2021-05-07 12:20 | disposition home or self-care (01) ==
LOC: ED 19:17 → CCU 19:19
PROVIDERS: ADMIT Internal Medicine; ATTEND Internal Medicine
DX: F15.121 Other stimulant abuse with intoxication delirium (principal); G92 Toxic encephalopathy; N17.9 Acute kidney failure, unspecified; F19.90 Other psychoactive substance use, unspecified, uncomplicated; E11.9 Type 2 diabetes mellitus without complications; Z20.822 Contact with and (suspected) exposure to COVID-19
CPT/HCPCS: 80053; 81001; 82010; 82550; 82800; 83735; 85025; 96374; 96375; 96376; 99285-25; G0378; J1815; J2060; J2560; J3010; J3360; J3486; J7030; J7121; U0003

== ENCOUNTER 2023-05-20 08:09 | Emergency (ER) | payer OTHER ==
[~2023-05-20] VITALS: Ht 182.9 cm; Wt 81.7 kg
[2023-05-20 09:37] VITALS: BP 105/71
== END 2023-05-20 09:37 | disposition home or self-care (01) ==
LOC: ED 08:09
DX: R55 Syncope and collapse (principal); E10.9 Type 1 diabetes mellitus without complications
CPT/HCPCS: 36415; 80053; 85025; 96374; 99284 25; J2405; J7030